=== PATIENT | male | born 1995 | race Caucasian/White ===

== ENCOUNTER 2017-12-10 00:35 | Emergency (ER) | payer SELFPAY ==
[2017-12-10 00:48] VITALS: TEMP 97
[2017-12-10 07:08] VITALS: BP 107/86; PULSE 84
== END 2017-12-10 07:11 | disposition home or self-care (01) ==
LOC: COL.ER 00:35
DX: S00.83XA Contusion of other part of head, initial encounter (principal); F10.129 Alcohol abuse with intoxication, unspecified; Y90.8 Blood alcohol level of 240 mg/100 ml or more; W18.39XA Other fall on same level, initial encounter
CPT/HCPCS: J2405; J7030